=== PATIENT | male | born 1970 | race Caucasian/White ===

== ENCOUNTER 2018-11-27 13:48 | Emergency (ER) | payer MEDICAID, OTHER ==
[~2018-11-27] VITALS: Ht 193 cm; Wt 154.2 kg
--- NOTE | 2018-11-27 15:38 | NUR ---
Patient discharged to home in stable conditon. Written and verbal after care instructions given. Patient verbalizes understanding of instructions.
== END 2018-11-27 15:39 | disposition home or self-care (01) ==
LOC: ER 13:48
DX: S50.02XA Contusion of left elbow, initial encounter (principal); S50.812A Abrasion of left forearm, initial encounter; Z88.5 Allergy status to narcotic agent; V39.9XXA Occupant (driver) (passenger) of three-wheeled motor vehicle injured in unspecified traffic accident, initial encounter; Y93.89 Activity, other specified; Y92.89 Other specified places as the place of occurrence of the external cause; Y99.8 Other external cause status
CPT/HCPCS: 71046; 73080; A4663